=== PATIENT | male | born 1980 | race Caucasian/White ===

== ENCOUNTER 2016-10-13 18:23 | Emergency (ER) | payer OTHER ==
[~2016-10-13] VITALS: Ht 175.2 cm; Wt 79.8 kg
[~2016-10-13 18:23] MED LIST: ACYCLOVIR400 MG PO; ATIVAN0.5 MG PO; CLINDAMYCIN HC300 MG PO; CYCLOBENZAPRINE10 MG PO; DARVOCET N 1001 TAB PO; DILANTIN KAPSE100 MG PO; DILANTIN100 MG PO; ELIMITE 5%60 GM PO; FLEXERIL10 MG PO; HYDROCODONE BIT1 T11 PO; Lotrimin 1%15 GM TP; MEDROL DOSEPAK4 MG PO; MOTRIN800 MG PO; NAPROSYN250 MG PO; NAPROSYN500 MG PO; NORCO 5-325 TA1 EACH PO; PHENYTOIN100 MG PO; ULTRAM50 MG PO
[2016-10-13 18:30] VITALS: BP 138/87
[2016-10-13] MEDS ORDERED: CLINDAMYCIN150 MG PO (18:58)
[2016-10-13] MEDS ORDERED: NAPROSYN500 MG PO (18:58)
== END 2016-10-13 19:41 | disposition home or self-care (01) ==
LOC: ED 18:23
DX: S01.111A Laceration without foreign body of right eyelid and periocular area, initial encounter (principal); S00.83XA Contusion of other part of head, initial encounter; Z29.12 Encounter for prophylactic antivenin; R03.0 Elevated blood-pressure reading, without diagnosis of hypertension; F17.200 Nicotine dependence, unspecified, uncomplicated; Z88.0 Allergy status to penicillin; W50.0XXA Accidental hit or strike by another person, initial encounter; Y93.89 Activity, other specified; Y92.9 Unspecified place or not applicable; Y99.9 Unspecified external cause status

== ENCOUNTER 2016-12-22 23:25 | Emergency (ER) | payer OTHER ==
[~2016-12-22] VITALS: Ht 175.2 cm; Wt 79.8 kg
[~2016-12-22 23:25] MED LIST changes: +CLINDAMYCIN150 MG PO
[2016-12-22 23:32] VITALS: BP 124/76
[2016-12-22] MEDS ORDERED: NAPROSYN500 MG PO (23:38)
[2016-12-22] MEDS ORDERED: CLINDAMYCIN150 MG PO (23:38)
== END 2016-12-22 23:56 | disposition home or self-care (01) ==
LOC: ED 23:25
DX: L03.116 Cellulitis of left lower limb (principal); R03.0 Elevated blood-pressure reading, without diagnosis of hypertension; F17.200 Nicotine dependence, unspecified, uncomplicated; Z88.0 Allergy status to penicillin

== ENCOUNTER 2017-02-18 18:39 | Emergency (ER) | payer OTHER ==
[~2017-02-18] VITALS: Wt 83.9 kg
[2017-02-18 18:44] VITALS: BP 125/66
[2017-02-18] MEDS ORDERED: LEVOFLOXACIN500 MG PO (19:21)
[2017-02-18] MEDS ORDERED: CLINDAMYCIN HC300 MG PO (19:21)
== END 2017-02-18 19:56 | disposition home or self-care (01) ==
LOC: ED 18:39
DX: S51.812A Laceration without foreign body of left forearm, initial encounter (principal); F17.200 Nicotine dependence, unspecified, uncomplicated; Z88.0 Allergy status to penicillin; W54.0XXA Bitten by dog, initial encounter; Y93.89 Activity, other specified; Y92.89 Other specified places as the place of occurrence of the external cause; Y99.8 Other external cause status

== ENCOUNTER 2017-02-26 15:46 | Emergency (ER) | payer OTHER ==
[~2017-02-26] VITALS: Wt 80.7 kg
[~2017-02-26 15:46] MED LIST changes: +LEVOFLOXACIN500 MG PO
[2017-02-26 15:48] VITALS: BP 134/68
[2017-02-26] MEDS ORDERED: DILANTIN50 MG PO (16:59)
== END 2017-02-26 17:59 | disposition home or self-care (01) ==
LOC: ED 15:46
DX: Z76.0 Encounter for issue of repeat prescription (principal); F17.200 Nicotine dependence, unspecified, uncomplicated; Z88.0 Allergy status to penicillin

== ENCOUNTER → 2017-03-06 | Outpatient (CLI) | payer OTHER ==
[~2017-03-06] MED LIST changes: +DILANTIN50 MG PO
== END | disposition home or self-care (01) ==
LOC: RESCLI 01:32
DX: E78.5 Hyperlipidemia, unspecified (principal); R56.9 Unspecified convulsions; F17.200 Nicotine dependence, unspecified, uncomplicated

== ENCOUNTER 2017-04-14 14:14 | Emergency (ER) | payer OTHER ==
[~2017-04-14] VITALS: Ht 177.8 cm; Wt 78.5 kg
[2017-04-14 14:18] VITALS: BP 112/76
[2017-04-14] MEDS ORDERED: VIBRAMYCIN100 MG PO (14:28)
== END 2017-04-14 14:37 | disposition home or self-care (01) ==
LOC: ED 14:14
DX: S70.361A Insect bite (nonvenomous), right thigh, initial encounter (principal); F17.200 Nicotine dependence, unspecified, uncomplicated; Z79.899 Other long term (current) drug therapy; Z88.0 Allergy status to penicillin; W57.XXXA Bitten or stung by nonvenomous insect and other nonvenomous arthropods, initial encounter; Y93.89 Activity, other specified; Y92.89 Other specified places as the place of occurrence of the external cause; Y99.9 Unspecified external cause status

== ENCOUNTER → 2017-10-22 | Outpatient (CLI) | payer SELFPAY ==
[~2017-10-22] MED LIST changes: +VIBRAMYCIN100 MG PO
== END | disposition home or self-care (01) ==
LOC: RESCLI 10:25
DX: E78.5 Hyperlipidemia, unspecified (principal); F17.210 Nicotine dependence, cigarettes, uncomplicated; Z87.898 Personal history of other specified conditions; Z88.0 Allergy status to penicillin

== ENCOUNTER → 2018-01-24 | Outpatient (CLI) | payer SELFPAY | END | disposition home or self-care (01) | LOC: RESCLI 04:01 | DX: E78.5 Hyperlipidemia, unspecified (principal); R56.9 Unspecified convulsions; F17.210 Nicotine dependence, cigarettes, uncomplicated; Z71.6 Tobacco abuse counseling ==

== ENCOUNTER → 2018-07-03 | Outpatient (CLI) | payer BC ==
[2018-07-03 11:18] LABS: BASO % 0.4 % (0.0-1.0); EOS # 0.2 10*3/uL (0.0-0.4); HEMATOCRIT 47.9 % (42.0-52.0); HEMOGLOBIN 16.3 g/dl (14.0-18.0); LYMPH # 1.4 10*3/uL (1.3-4.4); MEAN CELL VOLUME 93.2 fl (80.0-94.0); MEAN CORPUSCULAR HGB 31.7 pg (27.0-31.0); MEAN PLATELET VOLUME 10.1 fl (9.6-12.3); MONO # 0.8 10*3/uL (0.1-1.0); MONO % 8.6 % (3.0-9.0); NEUT # 6.7 10*3/uL (2.3-7.9); NEUT % 73.5 % (47.0-73.0); PLATELET COUNT AUTOMATED 240 10*3/uL (130-400); RED BLOOD COUNT 5.14 10*6/uL (4.50-5.90); RED CELL DISTRI WIDTH 12.4 % (0-14.5); WHITE BLOOD COUNT 9.1 10*3/uL (4.8-10.8)
[2018-07-03 11:38] LABS: ALBUMIN 3.7 gm/dl (3.1-4.5); ALKALINE PHOSPHATASE 110 U/L (45-117); BUN 13 mg/dl (7-24); CHLORIDE 103 mmol/L (98-107); CREATININE 1.05 mg/dL (0.70-1.30); POTASSIUM 4.3 mmol/L (3.5-5.1); SGOT/AST 12 IU/L (3-35); SGPT/ALT 30 U/L (12-78); SODIUM 140 mmol/L (136-145); TOTAL PROTEIN 7.5 gm/dL (6.4-8.2)
[2018-07-03 11:48] LABS: PHENYTOIN (DILANTIN) 10.6 ug/ml (10-20)
== END | disposition home or self-care (01) ==
LOC: LAB 10:43
PROVIDERS: Psychiatry & Neurology Clinical Neurophysiology
DX: R56.9 Unspecified convulsions (principal)

== ENCOUNTER 2019-02-18 23:35 | Emergency (ER) | payer SELFPAY ==
[~2019-02-18] VITALS: Ht 175.2 cm; Wt 80.7 kg
[2019-02-18 23:38] VITALS: BP 129/88
== END 2019-02-19 01:33 | disposition home or self-care (01) ==
LOC: ED 23:35
DX: S00.83XA Contusion of other part of head, initial encounter (principal); J34.89 Other specified disorders of nose and nasal sinuses; F17.200 Nicotine dependence, unspecified, uncomplicated; Z88.0 Allergy status to penicillin; Z79.2 Long term (current) use of antibiotics; Z79.899 Other long term (current) drug therapy; W18.39XA Other fall on same level, initial encounter; Y93.01 Activity, walking, marching and hiking; Y92.410 Unspecified street and highway as the place of occurrence of the external cause; Y99.8 Other external cause status

== ENCOUNTER 2019-05-29 15:28 | Emergency (ER) | payer SELFPAY ==
[~2019-05-29] VITALS: Ht 177.8 cm; Wt 84.4 kg
[2019-05-29 15:28] VITALS: BP 114/74
[2019-05-29] MEDS ORDERED: IBU600 M1 PO (16:36)
== END 2019-05-29 16:34 | disposition home or self-care (01) ==
LOC: ED 15:28
DX: M25.511 Pain in right shoulder (principal); G40.909 Epilepsy, unspecified, not intractable, without status epilepticus; F17.200 Nicotine dependence, unspecified, uncomplicated; Z88.0 Allergy status to penicillin; Z79.2 Long term (current) use of antibiotics; Z79.899 Other long term (current) drug therapy

== ENCOUNTER 2019-08-23 17:04 | Emergency (ER) | payer SELFPAY ==
[~2019-08-23] VITALS: Ht 177.8 cm; Wt 80.7 kg
[~2019-08-23 17:04] MED LIST changes: +IBU600 M1 PO
[2019-08-23 17:13] VITALS: BP 111/75
[2019-08-23] MEDS ORDERED: CLARITIN10 MG PO (17:55)
[2019-08-23] MEDS ORDERED: KENALOG 0.5% CR15 GM T (17:55)
== END 2019-08-23 18:12 | disposition home or self-care (01) ==
LOC: ED 17:04
DX: B34.9 Viral infection, unspecified (principal); B09 Unspecified viral infection characterized by skin and mucous membrane lesions; Z88.0 Allergy status to penicillin; Z79.2 Long term (current) use of antibiotics; Z79.899 Other long term (current) drug therapy

== ENCOUNTER 2020-03-06 22:05 | Emergency (ER) | payer SELFPAY ==
[~2020-03-06] VITALS: Ht 177.8 cm; Wt 79.8 kg
[~2020-03-06 22:05] MED LIST changes: +CLARITIN10 MG PO; +KENALOG 0.5% CR15 GM T
[2020-03-06 22:18] VITALS: BP 157/110
[2020-03-06] MEDS ORDERED: ZYRTEC10 M2 PO (22:27)
[2020-03-06] MEDS ORDERED: OMNICEF300 MG PO (22:27)
== END 2020-03-06 22:45 | disposition home or self-care (01) ==
LOC: ED 22:05
DX: H66.92 Otitis media, unspecified, left ear (principal); J45.909 Unspecified asthma, uncomplicated; R56.9 Unspecified convulsions; Z79.899 Other long term (current) drug therapy; Z88.0 Allergy status to penicillin

== ENCOUNTER → 2020-07-13 | Outpatient (CLI) | payer SELFPAY ==
[~2020-07-13] MED LIST changes: +OMNICEF300 MG PO; +ZYRTEC10 M2 PO
[2020-07-13 15:14] LABS: BASO % 0.4 % (0.0-1.0); EOS # 0.1 10*3/uL (0.0-0.4); EOS % 1.4 % (1.0-4.0); HEMATOCRIT 49.7 % (42.0-52.0); LYMPH # 1.7 10*3/uL (1.3-4.4); LYMPH % 21.5 % (27.0-41.0); MEAN CELL VOLUME 90.9 fl (80.0-94.0); MEAN CORPUSCULAR HGB 30.5 pg (27.0-31.0); MEAN CORPUSCULAR HGB CONC 33.6 g/dl (33.0-37.0); MEAN PLATELET VOLUME 9.6 fl (9.6-12.3); MONO # 0.7 10*3/uL (0.1-1.0); MONO % 8.2 % (3.0-9.0); NEUT # 5.5 10*3/uL (2.3-7.9); PLATELET COUNT AUTOMATED 239 10*3/uL (130-400); RED BLOOD COUNT 5.47 10*6/uL (4.50-5.90); RED CELL DISTRI WIDTH 12.3 % (0-14.5); WHITE BLOOD COUNT 8.1 10*3/uL (4.8-10.8)
[2020-07-13 15:31] LABS: ALBUMIN 4.1 gm/dl (3.1-4.5); ALKALINE PHOSPHATASE 120 U/L (45-117); BUN 13 mg/dl (7-24); CHLORIDE 105 mmol/L (98-107); CREATININE 0.92 mg/dL (0.70-1.30); POTASSIUM 4.1 mmol/L (3.5-5.1); SGOT/AST 20 IU/L (3-35); SODIUM 138 mmol/L (136-145); TOTAL PROTEIN 7.9 gm/dL (6.4-8.2)
[2020-07-13 15:34] LABS: SGPT/ALT 40 U/L (12-78)
[2020-07-13 15:42] LABS: PHENYTOIN (DILANTIN) 15.2 ug/ml (10-20)
== END | disposition home or self-care (01) ==
LOC: LAB 15:00
PROVIDERS: ATTEND Psychiatry & Neurology Clinical Neurophysiology
DX: R56.9 Unspecified convulsions (principal)

== ENCOUNTER 2020-11-24 18:33 | Emergency (ER) | payer SELFPAY ==
[~2020-11-24] VITALS: Ht 177.8 cm; Wt 79.8 kg
[2020-11-24 18:38] VITALS: BP 131/67
[2020-11-24] MEDS ORDERED: MEDROL DOSEPAK4 MG PO (20:24)
== END 2020-11-24 20:31 | disposition home or self-care (01) ==
LOC: ED 18:33
DX: M25.532 Pain in left wrist (principal); F17.200 Nicotine dependence, unspecified, uncomplicated; Z79.899 Other long term (current) drug therapy; Z88.0 Allergy status to penicillin; Z88.6 Allergy status to analgesic agent

== ENCOUNTER 2020-12-09 17:29 | Emergency (ER) | payer SELFPAY ==
[~2020-12-09] VITALS: Ht 177.8 cm; Wt 80.7 kg
[2020-12-09 17:56] LABS: BASO % 0.6 % (0.0-1.0); EOS # 0.2 10*3/uL (0.0-0.4); EOS % 2.2 % (1.0-4.0); HEMATOCRIT 45.4 % (42.0-52.0); LYMPH # 1.7 10*3/uL (1.3-4.4); LYMPH % 24.2 % (27.0-41.0); MEAN CELL VOLUME 89.2 fl (80.0-94.0); MEAN CORPUSCULAR HGB CONC 34.8 g/dl (33.0-37.0); MONO # 0.7 10*3/uL (0.1-1.0); MONO % 10.2 % (3.0-9.0); NEUT # 4.5 10*3/uL (2.3-7.9); NEUT % 62.7 % (47.0-73.0); PLATELET COUNT AUTOMATED 226 10*3/uL (130-400); RED BLOOD COUNT 5.09 10*6/uL (4.50-5.90); RED CELL DISTRI WIDTH 11.9 % (0-14.5); WHITE BLOOD COUNT 7.1 10*3/uL (4.8-10.8)
[2020-12-09 18:15] LABS: ALBUMIN 3.7 gm/dl (3.1-4.5); ALKALINE PHOSPHATASE 123 U/L (45-117); BUN 15 mg/dl (7-24); CHLORIDE 107 mmol/L (98-107); CPK 62 U/L (39-308); CREATININE 1.12 mg/dL (0.70-1.30); POTASSIUM 3.1 mmol/L (3.5-5.1); SGOT/AST 11 IU/L (3-35); SGPT/ALT 23 U/L (12-78); SODIUM 139 mmol/L (136-145); TOTAL PROTEIN 7.5 gm/dL (6.4-8.2)
[2020-12-09 18:23] LABS: ETHYL ALCOHOL < 3.0 mg/dl (<3); TROPONIN I < 0.015 ng/ml (<0.045)
[2020-12-10 00:43] VITALS: BP 107/81
[2020-12-10 01:26] LABS: BILIRUBIN 1+ (Negative); BLOOD Negative (Negative); CLARITY Clear (Clear); COLOR Dark Yellow (Yellow); GLUCOSE Negative (Negative); KETONE Trace (Negative); LEUKO ESTERASE Trace (Negative); NITRITE Negative (Negative); PH 5.5 (4.5-8.0); SPECIFIC GRAVITY >= 1.030 (1.001-1.030)
[2020-12-10 01:35] LABS: BACTERIA TRACE; URINE AMPHETAMINES > 1000 (1000ng/ml); URINE BARBITURATES < 200 (200ng/ml); URINE BENZODIAZEPINES < 200 (200ng/ml); URINE CANNABINOIDS (THC) > 50 (50ng/ml); URINE COCAINE < 300 (300ng/ml); URINE METHADONE < 300 (300ng/ml); URINE OPIATES < 300 (300ng/ml)
[2020-12-10 01:41] LABS: URINE PHENCYCLIDINE < 25 (25ng/ml)
== END 2020-12-10 02:13 | disposition home or self-care (01) ==
LOC: ED 17:29
PROVIDERS: Emergency Medicine
DX: G40.909 Epilepsy, unspecified, not intractable, without status epilepticus (principal); F17.200 Nicotine dependence, unspecified, uncomplicated; Z88.0 Allergy status to penicillin; Z88.6 Allergy status to analgesic agent; Z79.2 Long term (current) use of antibiotics; Z79.899 Other long term (current) drug therapy

== ENCOUNTER 2020-12-10 23:08 | Emergency (ER) | payer SELFPAY ==
[~2020-12-10] VITALS: Ht 177.8 cm; Wt 77.1 kg
[2020-12-11 00:39] LABS: BASO % 0.4 % (0.0-1.0); EOS # 0.2 10*3/uL (0.0-0.4); EOS % 1.7 % (1.0-4.0); HEMATOCRIT 43.1 % (42.0-52.0); LYMPH # 2.2 10*3/uL (1.3-4.4); LYMPH % 24.3 % (27.0-41.0); MEAN CELL VOLUME 90.4 fl (80.0-94.0); MEAN CORPUSCULAR HGB CONC 34.3 g/dl (33.0-37.0); MEAN PLATELET VOLUME 10.1 fl (9.6-12.3); MONO # 0.6 10*3/uL (0.1-1.0); MONO % 6.6 % (3.0-9.0); NEUT # 5.9 10*3/uL (2.3-7.9); NEUT % 66.6 % (47.0-73.0); PLATELET COUNT AUTOMATED 198 10*3/uL (130-400); RED BLOOD COUNT 4.77 10*6/uL (4.50-5.90); WHITE BLOOD COUNT 8.9 10*3/uL (4.8-10.8)
[2020-12-11 00:53] LABS: ALBUMIN 3.6 gm/dl (3.1-4.5); ALKALINE PHOSPHATASE 116 U/L (45-117); BUN 16 mg/dl (7-24); CHLORIDE 110 mmol/L (98-107); CREATININE 0.82 mg/dL (0.70-1.30); POTASSIUM 3.2 mmol/L (3.5-5.1); SGOT/AST 8 IU/L (3-35); SGPT/ALT 21 U/L (12-78); SODIUM 142 mmol/L (136-145); TOTAL PROTEIN 6.7 gm/dL (6.4-8.2)
[2020-12-11 00:55] LABS: CPK 46 U/L (39-308)
[2020-12-11 04:15] VITALS: BP 110/78
== END 2020-12-11 06:20 | disposition home or self-care (01) ==
LOC: ED 23:08
PROVIDERS: Emergency Medicine
DX: G40.909 Epilepsy, unspecified, not intractable, without status epilepticus (principal); F17.200 Nicotine dependence, unspecified, uncomplicated; Z88.0 Allergy status to penicillin; Z88.8 Allergy status to other drugs, medicaments and biological substances; Z79.899 Other long term (current) drug therapy

== ENCOUNTER 2020-12-16 20:15 | Emergency (ER) | payer SELFPAY ==
[~2020-12-16] VITALS: Ht 177.8 cm; Wt 79.8 kg
[2020-12-16 20:26] VITALS: BP 136/85
[2020-12-16 21:31] LABS: BASO % 0.6 % (0.0-1.0); EOS # 0.2 10*3/uL (0.0-0.4); EOS % 2.8 % (1.0-4.0); HEMATOCRIT 45.1 % (42.0-52.0); LYMPH # 1.9 10*3/uL (1.3-4.4); LYMPH % 27.8 % (27.0-41.0); MEAN CELL VOLUME 91.7 fl (80.0-94.0); MEAN CORPUSCULAR HGB 31.3 pg (27.0-31.0); MEAN CORPUSCULAR HGB CONC 34.1 g/dl (33.0-37.0); MEAN PLATELET VOLUME 10.3 fl (9.6-12.3); MONO # 0.7 10*3/uL (0.1-1.0); NEUT % 58.4 % (47.0-73.0); PLATELET COUNT AUTOMATED 242 10*3/uL (130-400); RED BLOOD COUNT 4.92 10*6/uL (4.50-5.90); RED CELL DISTRI WIDTH 12.1 % (0-14.5); WHITE BLOOD COUNT 6.8 10*3/uL (4.8-10.8)
[2020-12-16 21:42] LABS: BUN 12 mg/dl (7-24); CHLORIDE 106 mmol/L (98-107); CREATININE 0.82 mg/dL (0.70-1.30); POTASSIUM 4.1 mmol/L (3.5-5.1); SODIUM 140 mmol/L (136-145)
== END 2020-12-16 21:54 | disposition home or self-care (01) ==
LOC: ED 20:15
PROVIDERS: Internal Medicine
DX: R42 Dizziness and giddiness (principal); Z88.0 Allergy status to penicillin; Z88.8 Allergy status to other drugs, medicaments and biological substances; Z79.899 Other long term (current) drug therapy

== ENCOUNTER 2021-01-24 13:50 | Emergency (ER) | payer SELFPAY ==
[~2021-01-24] VITALS: Ht 177.8 cm; Wt 80.7 kg
[2021-01-24 13:54] VITALS: BP 129/79
== END 2021-01-24 17:02 | disposition home or self-care (01) ==
LOC: ED 13:50
DX: Z20.2 Contact with and (suspected) exposure to infections with a predominantly sexual mode of transmission (principal); F17.200 Nicotine dependence, unspecified, uncomplicated; Z88.0 Allergy status to penicillin; Z88.8 Allergy status to other drugs, medicaments and biological substances; Z79.899 Other long term (current) drug therapy

== ENCOUNTER → 2021-01-24 | Outpatient (CLI) | payer SELFPAY ==
[2021-01-24 13:47] LABS: BASO % 0.5 % (0.0-1.0); EOS # 0.1 10*3/uL (0.0-0.4); EOS % 1.6 % (1.0-4.0); HEMATOCRIT 46.2 % (42.0-52.0); LYMPH # 1.6 10*3/uL (1.3-4.4); LYMPH % 18.6 % (27.0-41.0); MEAN CELL VOLUME 90.6 fl (80.0-94.0); MEAN CORPUSCULAR HGB 31.6 pg (27.0-31.0); MEAN CORPUSCULAR HGB CONC 34.8 g/dl (33.0-37.0); MEAN PLATELET VOLUME 9.5 fl (9.6-12.3); MONO # 0.8 10*3/uL (0.1-1.0); MONO % 8.5 % (3.0-9.0); NEUT # 6.2 10*3/uL (2.3-7.9); NEUT % 70.3 % (47.0-73.0); PLATELET COUNT AUTOMATED 232 10*3/uL (130-400); RED CELL DISTRI WIDTH 12.4 % (0-14.5); WHITE BLOOD COUNT 8.8 10*3/uL (4.8-10.8)
[2021-01-24 14:04] LABS: ALBUMIN 3.9 gm/dl (3.1-4.5); ALKALINE PHOSPHATASE 128 U/L (45-117); BUN 11 mg/dl (7-24); CHLORIDE 108 mmol/L (98-107); CREATININE 0.88 mg/dL (0.70-1.30); PHENYTOIN (DILANTIN) 13.3 ug/ml (10-20); POTASSIUM 3.9 mmol/L (3.5-5.1); SGOT/AST 12 IU/L (3-35); SGPT/ALT 20 U/L (12-78); SODIUM 135 mmol/L (136-145); TOTAL PROTEIN 7.5 gm/dL (6.4-8.2)
== END | disposition home or self-care (01) ==
LOC: LAB 13:26
PROVIDERS: ATTEND Psychiatry & Neurology Clinical Neurophysiology
DX: R56.9 Unspecified convulsions (principal)

== ENCOUNTER 2022-11-29 16:41 | Emergency (ER) | payer SELFPAY ==
[~2022-11-29] VITALS: Ht 177.8 cm; Wt 83.0 kg
[2022-11-29 17:39] LABS: BASO % 0.4 % (0.0-1.0); EOS # 0.2 10*3/uL (0.0-0.4); EOS % 2.9 % (1.0-4.0); LYMPH # 1.7 10*3/uL (1.3-4.4); LYMPH % 24.1 % (27.0-41.0); MEAN CELL VOLUME 92.4 fl (80.0-94.0); MEAN CORPUSCULAR HGB 31.9 pg (27.0-31.0); MEAN CORPUSCULAR HGB CONC 34.5 g/dl (33.0-37.0); MEAN PLATELET VOLUME 10.2 fl (9.6-12.3); MONO # 0.6 10*3/uL (0.1-1.0); MONO % 8.9 % (3.0-9.0); NEUT # 4.5 10*3/uL (2.3-7.9); NEUT % 63.1 % (47.0-73.0); PLATELET COUNT AUTOMATED 183 10*3/uL (130-400); RED BLOOD COUNT 4.76 10*6/uL (4.50-5.90); RED CELL DISTRI WIDTH 11.9 % (0-14.5); WHITE BLOOD COUNT 7.2 10*3/uL (4.8-10.8)
[2022-11-29 18:07] LABS: ACT PARTIAL THROMBO TIME 52.9 SECONDS (20.0-32.1)
[2022-11-29 18:10] LABS: ALKALINE PHOSPHATASE 111 U/L (46-116); BUN 12 mg/dl (9-23); CHLORIDE 105 mmol/L (98-107); LIPASE 30 U/L (12-53); POTASSIUM 3.7 mmol/L (3.4-5.1); SGPT/ALT 25 U/L (10-49); TOTAL PROTEIN 6.6 gm/dL (6.0-8.0)
[2022-11-29 18:50] VITALS: BP 118/81
== END 2022-11-29 20:43 | disposition home or self-care (01) ==
LOC: ED 16:41
PROVIDERS: Emergency Medicine
DX: R00.2 Palpitations (principal); R07.89 Other chest pain; J45.909 Unspecified asthma, uncomplicated; Z88.0 Allergy status to penicillin; Z88.6 Allergy status to analgesic agent; Z98.890 Other specified postprocedural states; F17.200 Nicotine dependence, unspecified, uncomplicated

== ENCOUNTER 2023-04-13 00:40 | Emergency (ER) | payer SELFPAY ==
[~2023-04-13] VITALS: Ht 177.8 cm; Wt 79.4 kg
[2023-04-13 00:42] VITALS: BP 150/73
[2023-04-13 03:20] LABS: URINE AMPHETAMINES Negative (1000ng/ml); URINE BARBITURATES Negative (200ng/ml); URINE BENZODIAZEPINES Negative (200ng/ml); URINE CANNABINOIDS (THC) Positive (50ng/ml); URINE COCAINE Negative (300ng/ml); URINE METHADONE Negative (300ng/ml); URINE OPIATES Negative (300ng/ml); URINE PHENCYCLIDINE Negative (25ng/ml)
== END 2023-04-13 06:20 | disposition home or self-care (01) ==
LOC: ED 00:40
PROVIDERS: Internal Medicine
DX: F16.90 Hallucinogen use, unspecified, uncomplicated (principal); F16.99 Hallucinogen use, unspecified with unspecified hallucinogen-induced disorder; J45.909 Unspecified asthma, uncomplicated; G40.909 Epilepsy, unspecified, not intractable, without status epilepticus; Z88.0 Allergy status to penicillin; Z88.6 Allergy status to analgesic agent; F17.200 Nicotine dependence, unspecified, uncomplicated; Z79.899 Other long term (current) drug therapy

== ENCOUNTER → 2023-08-19 | Outpatient (CLI) | payer SELFPAY ==
[2023-08-19 10:14] LABS: BASO % 0.4 % (0.0-1.0); EOS # 0.2 10*3/uL (0.0-0.4); EOS % 1.7 % (1.0-4.0); LYMPH # 1.6 10*3/uL (1.3-4.4); LYMPH % 16.1 % (27.0-41.0); MEAN CORPUSCULAR HGB 31.4 pg (27.0-31.0); MEAN CORPUSCULAR HGB CONC 33.8 g/dl (33.0-37.0); MEAN PLATELET VOLUME 9.7 fl (9.6-12.3); MONO # 0.7 10*3/uL (0.1-1.0); NEUT # 7.3 10*3/uL (2.3-7.9); NEUT % 74.3 % (47.0-73.0); PLATELET COUNT AUTOMATED 182 10*3/uL (130-400); RED BLOOD COUNT 4.84 10*6/uL (4.50-5.90); RED CELL DISTRI WIDTH 12.6 % (0-14.5); WHITE BLOOD COUNT 9.8 10*3/uL (4.8-10.8)
[2023-08-19 10:39] LABS: ALKALINE PHOSPHATASE 111 U/L (46-116); BUN 12 mg/dl (9-23); CHLORIDE 106 mmol/L (98-107); PHENYTOIN (DILANTIN) 9.6 ug/ml (10-20); POTASSIUM 3.7 mmol/L (3.4-5.1); SGPT/ALT 20 U/L (5-49); TOTAL PROTEIN 6.9 gm/dL (6.0-8.0)
== END | disposition home or self-care (01) ==
LOC: LAB 09:58
PROVIDERS: ATTEND Psychiatry & Neurology Clinical Neurophysiology
DX: G40.909 Epilepsy, unspecified, not intractable, without status epilepticus (principal)

== ENCOUNTER 2024-03-04 22:48 | Emergency (ER) | payer SELFPAY ==
[~2024-03-04] VITALS: Ht 177.8 cm; Wt 79.8 kg
[2024-03-04 22:55] VITALS: BP 128/72
== END 2024-03-04 23:59 | disposition home or self-care (01) ==
LOC: ED 22:48
DX: T16.1XXA Foreign body in right ear, initial encounter (principal); F17.200 Nicotine dependence, unspecified, uncomplicated; Z88.0 Allergy status to penicillin; Z88.8 Allergy status to other drugs, medicaments and biological substances; Z79.899 Other long term (current) drug therapy; X58.XXXA Exposure to other specified factors, initial encounter; Y93.89 Activity, other specified; Y92.89 Other specified places as the place of occurrence of the external cause; Y99.8 Other external cause status

== ENCOUNTER 2024-07-25 01:21 | Emergency (ER) | payer MEDICAID ==
[~2024-07-25] VITALS: Ht 180.3 cm; Wt 81.2 kg
[2024-07-25 01:32] VITALS: BP 137/91
[2024-07-25] MEDS ORDERED: CLINDAMYCIN HC300 MG PO (03:45)
== END 2024-07-25 03:54 | disposition home or self-care (01) ==
LOC: ED 01:21
DX: S43.402A Unspecified sprain of left shoulder joint, initial encounter (principal); K04.7 Periapical abscess without sinus; R22.0 Localized swelling, mass and lump, head; J45.909 Unspecified asthma, uncomplicated; F17.210 Nicotine dependence, cigarettes, uncomplicated; Z88.0 Allergy status to penicillin; Z88.6 Allergy status to analgesic agent; Z98.890 Other specified postprocedural states; X58.XXXA Exposure to other specified factors, initial encounter; Y93.89 Activity, other specified; Y92.89 Other specified places as the place of occurrence of the external cause; Y99.8 Other external cause status

== ENCOUNTER 2024-08-08 03:06 | Emergency (ER) | payer MEDICAID ==
[~2024-08-08] VITALS: Ht 170.1 cm; Wt 80.7 kg
[2024-08-08 03:19] VITALS: BP 178/90
== END 2024-08-08 04:30 | disposition home or self-care (01) ==
LOC: ED 03:06
DX: K04.7 Periapical abscess without sinus (principal); Z79.899 Other long term (current) drug therapy; Z88.0 Allergy status to penicillin; Z88.8 Allergy status to other drugs, medicaments and biological substances

== ENCOUNTER 2024-11-01 05:01 | Emergency (ER) | payer SELFPAY ==
[~2024-11-01] VITALS: Ht 180.3 cm; Wt 83.0 kg
[2024-11-01 05:11] VITALS: BP 137/75
[2024-11-01 06:01] LABS: BASO % 0.4 % (0.0-1.0); EOS # 0.2 10*3/uL (0.0-0.4); EOS % 1.6 % (1.0-4.0); HEMATOCRIT 44.1 % (42.0-52.0); MEAN CELL VOLUME 90.6 fl (80.0-94.0); MEAN CORPUSCULAR HGB 31.4 pg (27.0-31.0); MEAN CORPUSCULAR HGB CONC 34.7 g/dl (33.0-37.0); MEAN PLATELET VOLUME 10.2 fl (9.6-12.3); MONO # 0.9 10*3/uL (0.1-1.0); MONO % 9.2 % (3.0-9.0); NEUT # 7.1 10*3/uL (2.3-7.9); NEUT % 70.3 % (47.0-73.0); PLATELET COUNT AUTOMATED 174 10*3/uL (130-400); RED BLOOD COUNT 4.87 10*6/uL (4.50-5.90)
[2024-11-01 06:04] LABS: ALKALINE PHOSPHATASE 137 U/L (46-116); BUN 13 mg/dl (9-23); CHLORIDE 102 mmol/L (98-107); LIPASE 31 U/L (12-53); POTASSIUM 3.6 mmol/L (3.4-5.1); SGPT/ALT 20 U/L (5-49); TOTAL PROTEIN 7.2 gm/dL (6.0-8.0)
[2024-11-01 06:45] LABS: BILIRUBIN Negative (Negative); BLOOD 1+ (Negative); CLARITY Clear (Clear); COLOR Yellow (Yellow); GLUCOSE Negative (Negative); KETONE Negative (Negative); LEUKO ESTERASE Negative (Negative); NITRITE Negative (Negative); PH 5.5 (4.5-8.0); SPECIFIC GRAVITY 1.025 (1.001-1.030)
[2024-11-01] MEDS ORDERED: traMADol Hydrochloride 50 MG TAB PO ONE (07:00)
[2024-11-01] MEDS ORDERED: Acetaminophen/Hydrocodone 5 MG/325 MG TABLET PO ONE (07:00)
[2024-11-01 07:49] LABS: BACTERIA 1+; WBC 0-2 wbc/hpf (0-5)
[2024-11-01] MEDS ORDERED: LEVOFLOXACIN 750 MG TAB PO ONE (08:30)
[2024-11-01] MEDS ORDERED: TRAMADOL HCL50 MG PO (08:31)
[2024-11-01] MEDS ORDERED: LEVOFLOXACIN750 M2 PO (08:31)
== END 2024-11-01 09:45 | disposition home or self-care (01) ==
LOC: ED 05:01
PROVIDERS: Emergency Medicine
DX: J18.9 Pneumonia, unspecified organism (principal); F17.290 Nicotine dependence, other tobacco product, uncomplicated; Z88.0 Allergy status to penicillin; Z88.6 Allergy status to analgesic agent; Z79.899 Other long term (current) drug therapy

== ENCOUNTER 2024-11-05 00:11 | Emergency (ER) | payer SELFPAY ==
[~2024-11-05] VITALS: Ht 180.3 cm; Wt 83.0 kg
[~2024-11-05 00:11] MED LIST changes: -ELIQUIS5 M1 PO
[2024-11-05 00:31] VITALS: BP 118/83
[2024-11-05] MEDS ORDERED: Enoxaparin Sodium 100 MG/ML SYR SC ONE (00:40)
[2024-11-05 00:46] LABS: BASO % 0.3 % (0.0-1.0); EOS # 0.2 10*3/uL (0.0-0.4); EOS % 2.1 % (1.0-4.0); HEMATOCRIT 43.5 % (42.0-52.0); MEAN CELL VOLUME 90.6 fl (80.0-94.0); MEAN CORPUSCULAR HGB 31.3 pg (27.0-31.0); MEAN CORPUSCULAR HGB CONC 34.5 g/dl (33.0-37.0); MEAN PLATELET VOLUME 9.6 fl (9.6-12.3); NEUT # 5.8 10*3/uL (2.3-7.9); NEUT % 65.3 % (47.0-73.0); PLATELET COUNT AUTOMATED 248 10*3/uL (130-400); RED CELL DISTRI WIDTH 11.8 % (0-14.5); WHITE BLOOD COUNT 8.9 10*3/uL (4.8-10.8)
[2024-11-05] MEDS ORDERED: Enoxaparin Sodium 100 MG/ML SYR SC SCH (10:00)
== END 2024-11-05 01:13 | disposition home or self-care (01) ==
LOC: ED 00:11
PROVIDERS: Internal Medicine
DX: I26.99 Other pulmonary embolism without acute cor pulmonale (principal); F17.200 Nicotine dependence, unspecified, uncomplicated; Z88.0 Allergy status to penicillin; Z88.6 Allergy status to analgesic agent; Z79.2 Long term (current) use of antibiotics; Z79.899 Other long term (current) drug therapy

== ENCOUNTER 2024-11-05 11:01 | Inpatient (IN) | payer SELFPAY ==
[~2024-11-05] VITALS: Ht 180.3 cm; Wt 88.5 kg
[2024-11-05 11:21] VITALS: BP 144/73
[2024-11-05] MEDS ORDERED: SODIUM CHLORIDE 0.9% 1,000 ML IV ONE (11:45)
[2024-11-05] MEDS ORDERED: IOHEXOL 350 MG/ML 100 ML VIAL IV ONE (11:55)
[2024-11-05] MEDS ORDERED: SODIUM CHLORIDE 0.9% 100 ML BAG IV ONE (11:55)
[2024-11-05 12:11] LABS: BASO % 0.5 % (0.0-1.0); EOS # 0.2 10*3/uL (0.0-0.4); EOS % 2.8 % (1.0-4.0); HEMATOCRIT 43.5 % (42.0-52.0); MEAN CELL VOLUME 90.4 fl (80.0-94.0); MEAN CORPUSCULAR HGB 30.8 pg (27.0-31.0); MEAN PLATELET VOLUME 9.8 fl (9.6-12.3); MONO # 0.8 10*3/uL (0.1-1.0); MONO % 9.5 % (3.0-9.0); NEUT # 5.8 10*3/uL (2.3-7.9); NEUT % 70.1 % (47.0-73.0); PLATELET COUNT AUTOMATED 239 10*3/uL (130-400); RED BLOOD COUNT 4.81 10*6/uL (4.50-5.90); RED CELL DISTRI WIDTH 11.7 % (0-14.5); WHITE BLOOD COUNT 8.3 10*3/uL (4.8-10.8)
[2024-11-05 12:32] LABS: BUN 21 mg/dl (9-23); CHLORIDE 102 mmol/L (98-107); POTASSIUM 4.3 mmol/L (3.4-5.1)
[2024-11-05 12:38] LABS: ACT PARTIAL THROMBO TIME 63.8 SECONDS (20.0-32.1)
[2024-11-05] MEDS ORDERED: AZITHROMYCIN 250 ML IV ONE (14:20)
[2024-11-05] MEDS ORDERED: cefTRIAXone Sodium 1 GM/10 ML SYR IV ONE (14:20)
[2024-11-05] MEDS ORDERED: HEPARIN SODIUM 250 ML IV SCH (14:20)
[2024-11-05] MEDS ORDERED: BISACODYL 5 MG TAB PO PRN (15:25)
[2024-11-05] MEDS ORDERED: ACETAMINOPHEN 650 MG SUPP R PRN (15:25)
[2024-11-05] MEDS ORDERED: Acetaminophen/Hydrocodone 5 MG/325 MG TABLET PO PRN (15:25)
[2024-11-05] MEDS ORDERED: ACETAMINOPHEN 325 MG TAB PO PRN (15:25)
[2024-11-05] MEDS ORDERED: BISACODYL 10 MG SUPP R PRN (15:25)
[2024-11-05] MEDS ORDERED: Ondansetron Hydrochloride 4 MG/2 ML VIAL IV PRN (15:25)
[2024-11-05] MEDS ORDERED: Magnesium Hydroxide 30 ML UDC PO PRN (15:25)
[2024-11-05] MEDS ORDERED: Vancomycin Hydrochloride 1,000 MG in SODIUM CHLORIDE 0.9% 250 ML IV SCH ×2 (15:30→16:00)
[2024-11-05 16:39] VITALS: BP 127/84
[2024-11-05] MEDS ORDERED: Cefepime Hydrochloride 1 GM in SODIUM CHLORIDE 0.9% 50 ML IV SCH (18:00)
[2024-11-05 19:45] VITALS: BP 136/82
[2024-11-05 20:28] VITALS: BP 132/76
[2024-11-05] MEDS ORDERED: Phenytoin Sodium, Extended 100 MG CAP PO SCH (22:00)
[2024-11-05] MEDS ORDERED: Enoxaparin Sodium 100 MG/ML SYR SC SCH (22:00)
[2024-11-06] VITALS: BP 138/87
[2024-11-06] MEDS ORDERED: Menthol/Methyl Salicylate 1 EA TUBE T PRN (03:50)
[2024-11-06 04:10] LABS: BUN 13 mg/dl (9-23); CHLORIDE 103 mmol/L (98-107)
[2024-11-06 05:45] LABS: ACT PARTIAL THROMBO TIME 62.9 SECONDS (20.0-32.1)
[2024-11-06 05:51] LABS: ALKALINE PHOSPHATASE 106 U/L (46-116); BUN 12 mg/dl (9-23); CHLORIDE 102 mmol/L (98-107); CHOLESTEROL 180 mg/dL (<200); FREE T4 0.96 ng/dl (0.89-1.76); LDL CHOLESTEROL 99 mg/dL (9-159); SGPT/ALT 20 U/L (5-49); TRIGLYCERIDES 248 mg/dl (<150)
[2024-11-06 06:06] LABS: BASO % 0.5 % (0.0-1.0); EOS # 0.3 10*3/uL (0.0-0.4); EOS % 3.3 % (1.0-4.0); HEMATOCRIT 42.6 % (42.0-52.0); MEAN CELL VOLUME 90.3 fl (80.0-94.0); MEAN CORPUSCULAR HGB 31.1 pg (27.0-31.0); MEAN CORPUSCULAR HGB CONC 34.5 g/dl (33.0-37.0); MEAN PLATELET VOLUME 9.8 fl (9.6-12.3); MONO # 0.8 10*3/uL (0.1-1.0); MONO % 9.3 % (3.0-9.0); NEUT # 5.2 10*3/uL (2.3-7.9); NEUT % 63.8 % (47.0-73.0); PLATELET COUNT AUTOMATED 236 10*3/uL (130-400); RED BLOOD COUNT 4.72 10*6/uL (4.50-5.90); RED CELL DISTRI WIDTH 11.9 % (0-14.5); WHITE BLOOD COUNT 8.2 10*3/uL (4.8-10.8)
[2024-11-06 06:55] LABS: VITAMIN D, 25-HYDROXY 23.6 ng/mL (30-100)
[2024-11-06 08:00] VITALS: BP 134/86
[2024-11-06 12:00] VITALS: BP 121/75
[2024-11-06 16:00] VITALS: BP 124/81
[2024-11-06] MEDS ORDERED: Cefepime Hydrochloride 2 GM,IV 1 EA in SODIUM CHLORIDE 0.9% 50 ML IV SCH (18:00)
[2024-11-06 20:00] VITALS: BP 112/76
[2024-11-06] MEDS ORDERED: Doxycycline Hyclate 100 MG CAPSULE PO SCH (22:00)
[2024-11-07] VITALS: BP 130/86
[2024-11-07 08:00] VITALS: BP 128/82
[2024-11-07 12:00] VITALS: BP 130/81
[2024-11-07 16:00] VITALS: BP 132/80
[2024-11-07 20:00] VITALS: BP 146/85
[2024-11-08] VITALS: BP 139/82
[2024-11-08 04:00] VITALS: BP 135/81
[2024-11-08 08:00] VITALS: BP 146/79
[2024-11-08 09:37] LABS: BASO # 0.1 10*3/uL (0.0-0.1); BASO % 0.9 % (0.0-1.0); EOS # 0.4 10*3/uL (0.0-0.4); EOS % 5.3 % (1.0-4.0); HEMATOCRIT 45.8 % (42.0-52.0); MEAN CELL VOLUME 90.7 fl (80.0-94.0); MEAN CORPUSCULAR HGB 30.7 pg (27.0-31.0); MEAN CORPUSCULAR HGB CONC 33.8 g/dl (33.0-37.0); MEAN PLATELET VOLUME 9.7 fl (9.6-12.3); MONO # 0.6 10*3/uL (0.1-1.0); NEUT # 4.8 10*3/uL (2.3-7.9); NEUT % 62.4 % (47.0-73.0); PLATELET COUNT AUTOMATED 264 10*3/uL (130-400); RED BLOOD COUNT 5.05 10*6/uL (4.50-5.90); RED CELL DISTRI WIDTH 11.9 % (0-14.5); WHITE BLOOD COUNT 7.7 10*3/uL (4.8-10.8)
[2024-11-08 10:11] LABS: BUN 13 mg/dl (9-23); CHLORIDE 101 mmol/L (98-107); POTASSIUM 3.9 mmol/L (3.4-5.1)
[2024-11-08 12:00] VITALS: BP 134/79
[2024-11-08] MEDS ORDERED: ELIQUIS5 M1 PO (15:31)
[2024-11-08] MEDS ORDERED: OMNICEF300 MG PO (15:31)
[2024-11-08 16:00] VITALS: BP 132/81
[2024-11-08] MEDS ORDERED: Enoxaparin Sodium 100 MG/ML SYR SC SCH (18:00)
== END 2024-11-08 18:39 | disposition home or self-care (01) | DRG 175 ==
LOC: ED 11:01 → EDHOLD 14:54 → 5E 19:55
PROVIDERS: Internal Medicine; Student in an Organized Health Care Education/Training Program; ADMIT Internal Medicine; ATTEND Internal Medicine
DX: I26.99 Other pulmonary embolism without acute cor pulmonale (principal); J18.9 Pneumonia, unspecified organism; I82.411 Acute embolism and thrombosis of right femoral vein; G40.909 Epilepsy, unspecified, not intractable, without status epilepticus; Z88.0 Allergy status to penicillin; Z87.891 Personal history of nicotine dependence; Z88.8 Allergy status to other drugs, medicaments and biological substances; Z83.3 Family history of diabetes mellitus

== ENCOUNTER → 2024-11-05 | Outpatient (CLI) | payer SELFPAY ==
[~2024-11-05] MED LIST changes: +ELIQUIS5 M1 PO; +LEVOFLOXACIN750 M2 PO; +TRAMADOL HCL50 MG PO
== END ==
LOC: RESCLI 10:08
PROVIDERS: ATTEND Internal Medicine
DX: R04.2 Hemoptysis (principal); I26.99 Other pulmonary embolism without acute cor pulmonale; G40.909 Epilepsy, unspecified, not intractable, without status epilepticus; Z71.6 Tobacco abuse counseling

== ENCOUNTER 2024-11-13 22:13 | Emergency (ER) | payer MEDICAID ==
[~2024-11-13] VITALS: Ht 180.3 cm; Wt 87.5 kg
[~2024-11-13 22:13] MED LIST changes: +ELIQUIS5 M1 PO
[2024-11-13 22:24] VITALS: BP 153/100
[2024-11-13] MEDS ORDERED: IOHEXOL 300 MG/ML 100 ML VIAL IV ONE (22:45)
[2024-11-13 22:50] LABS: BASO # 0.1 10*3/uL (0.0-0.1); BASO % 0.9 % (0.0-1.0); EOS # 0.2 10*3/uL (0.0-0.4); EOS % 2.9 % (1.0-4.0); HEMATOCRIT 41.5 % (42.0-52.0); MEAN CELL VOLUME 91.6 fl (80.0-94.0); MEAN CORPUSCULAR HGB 31.1 pg (27.0-31.0); MONO # 0.7 10*3/uL (0.1-1.0); NEUT # 4.7 10*3/uL (2.3-7.9); PLATELET COUNT AUTOMATED 212 10*3/uL (130-400); RED BLOOD COUNT 4.53 10*6/uL (4.50-5.90); RED CELL DISTRI WIDTH 11.9 % (0-14.5)
[2024-11-13 23:07] LABS: ACT PARTIAL THROMBO TIME 55.6 SECONDS (20.0-32.1)
[2024-11-13 23:09] LABS: BUN 19 mg/dl (9-23); CHLORIDE 102 mmol/L (98-107); POTASSIUM 4.2 mmol/L (3.4-5.1)
== END 2024-11-14 01:03 | disposition home or self-care (01) ==
LOC: ED 22:13
PROVIDERS: Emergency Medicine
DX: S30.1XXA Contusion of abdominal wall, initial encounter (principal); J45.909 Unspecified asthma, uncomplicated; Z79.899 Other long term (current) drug therapy; Z88.0 Allergy status to penicillin; Z88.6 Allergy status to analgesic agent; W51.XXXA Accidental striking against or bumped into by another person, initial encounter; Y93.89 Activity, other specified; Y92.89 Other specified places as the place of occurrence of the external cause; Y99.8 Other external cause status